=== PATIENT | female | born 1950 | race Caucasian/White ===

== ENCOUNTER 2016-09-25 21:14 | Emergency (ER) | payer OTHER ==
--- NOTE | ~2016-09-25 | CR126 ---
[facility] A Service of [facility] & [facility] RADIOLOGY TEXT RESULTS PATIENT: KAILA THOMSON LOCATION: [facility] : 54 UNIT #: [id number] AGE: [address]: Sebastian Michelle MD SEX: F ORDER DR: [id number] [facility] [address] [place], [place] [address] [id number] E MR#: [id number] Acc #: [id number] NAME: KAILA THOMSON : 1950 SEX: F STUDY DATE/TIME: 09/25/2016 21:16 UNIT: [facility] ROOM: STUDY DESCRIPTION: CR Foot Complete Min 3 View Lt Attending Physician: Sebastian Michelle M.D. Ordering Physician: Sebastian Michelle M.D. Primary Care Physician: Ofe Pantoja M.D. MEDICAL IMAGING REPORT This report is preliminary unless electronic signature is present EXAM Left foot series, 09/25/2016. HISTORY Pain. The patient describes 2 days of pain, status post fall anterior and lateral ankle/foot pain. FINDINGS AP, lateral and oblique radiographs of the right foot are presented. Diminished bony mineralization. Prior open reduction internal fixation right femur. Visualized orthopedic hardware is intact. No acute traumatic fracture or malalignment. Joint spaces are intact. No soft tissue defect or subcutaneous air. Soft tissue swelling suggested dorsal aspect of distal foot. Correlate with exam and mechanism of injury. Dictated by... Alex Paulino M.D. THIS IS AN ELECTRONICALLY VERIFIED REPORT Alex Paulino M.D. at 09/26/2016 10:44 PM Quang TD: 09/25/2016 23:26 JOB #: [id number] MEDICAL IMAGING REPORT Page 1 of 1 COPY
--- NOTE | ~2016-09-25 | CR21 ---
[facility] A Service [facility] RADIOLOGY TEXT RESULTS PATIENT: KAILA THOMSON LOCATION: [facility] : 54 UNIT #: [id number] AGE: [address]: Sebastian Michelle MD SEX: F ORDER DR: [id number] [place] [id number] [facility] [place], [place] [address] [id number] E MR#: [id number] Acc #: [id number] NAME: KAILA THOMSON. : 1950 SEX: F STUDY DATE/TIME: 09/25/2016 21:14 UNIT: [facility] ROOM: STUDY DESCRIPTION: CR Ankle Min 3 Views Rt Attending Physician: Sebastian Michelle M.D. Ordering Physician: Sebastian Michelle M.D. Primary Care Physician: Ofe Pantoja M.D. MEDICAL IMAGING REPORT This report is preliminary unless electronic signature is present EXAM Right ankle 09/25/2016 INDICATIONS 66-year-old female with anterior and lateral ankle and foot pain symptoms 2 days. TECHNIQUE 3 views right ankle. COMPARISON STUDIES No comparisons. FINDINGS The bones are osteoporotic. Postop changes related to the fracture repair involving the distal tibia with screw and jamil fixation equipment present. No acute fracture. Soft tissues within normal limits. Mild degenerative change of the right ankle. IMPRESSION 1. Osteoporosis and degenerative change but no acute fracture. Postop changes of prior fracture repair. Surgical hardware appears intact. Dictated by... Garrett Jackson M.D. THIS IS AN ELECTRONICALLY VERIFIED REPORT Garrett Jackson M.D. at 09/26/2016 10:35 AM MARY GRACEY/chrissie [facility] A Service [facility] RADIOLOGY TEXT RESULTS PATIENT: KAILA THOMSON LOCATION: [facility] : 54 UNIT #: [id number] AGE: [address]: Sebastian Michelle MD SEX: F ORDER DR: TD: 09/25/2016 23:11 JOB #: [id number] MEDICAL IMAGING REPORT Page 1 of 1 COPY
--- NOTE | ~2016-09-25 | CR126 ---
[facility] A Service of [facility] RADIOLOGY TEXT RESULTS PATIENT: KAILA THOMSON LOCATION: [facility] : 54 UNIT #: [id number] AGE: [address]: Sebastian Michelle MD SEX: F ORDER DR: [id number] [facility] [address] [place], [place] [address] [id number] E MR#: [id number] Acc #: [id number] NAME: KAILA THOMSON : 1950 SEX: F STUDY DATE/TIME: 09/25/2016 22:34 UNIT: [facility] ROOM: STUDY DESCRIPTION: CR Foot Complete Min 3 View Lt Attending Physician: Sebastian Michelle M.D. Ordering Physician: Sebastian Michelle M.D. Primary Care Physician: Ofe Pantoja M.D. MEDICAL IMAGING REPORT This report is preliminary unless electronic signature is present EXAM Left foot series 09/25/2016. HISTORY Pain. Anterior foot pain for 2 days status post fall. FINDINGS AP lateral and oblique radiographs of the left foot are presented. Normal bony mineralization. No traumatic fracture or malalignment. Joint spaces are intact. No soft tissue defect, subcutaneous air or radiodense foreign body. Small plantar calcaneal spur. Dictated by... Alex Paulino M.D. THIS IS AN ELECTRONICALLY VERIFIED REPORT Alex Paulino M.D. at 09/26/2016 10:44 PM OLGA/sid TD: 09/25/2016 23:53 JOB #: [id number] MEDICAL IMAGING REPORT Page 1 of 1 COPY
[~2016-09-25 21:14] MED LIST: ALBUTEROL17 G1 IH; ASPIR-TRIN325 MG PO; ASPIRIN PO; ATARAX PO; BACTROBAN22 GM TP; BUMEX; CLEOCIN HCL300 M1 PO; DIAZEPAM PO; DIAZEPAM10 MG PO; DIFLUCAN PO; DIFLUCAN100 MG PO; HYDROCODON-ACE1 EAC4 PO; HYZAAR 50-12.51 TAB; ISORDIL; LEVAQUIN PO; LITE COAT ASPI325 M1 PO; LORTAB 10/500 T1 TAB; LORTAB 101 TAB 10/5 DOB; METOPROLOL SUCC25 MG PO; METOPROLOL TAR25 MG PO; NEURONTIN PO; NEURONTIN800 MG PO; NORCO 10/325 TA1 TAB PO; PLAVIX PO; SEROQUEL300 MG PO; TOPROL XL PO; VISTARIL PO; ZITHROMAX PO; ZITHROMAX1 G/PKT PO
== END 2016-09-25 23:42 | disposition home or self-care (01) ==
LOC: CED 21:14
DX: S93.401A Sprain of unspecified ligament of right ankle, initial encounter (principal); S93.602A Unspecified sprain of left foot, initial encounter; S93.601A Unspecified sprain of right foot, initial encounter; F17.200 Nicotine dependence, unspecified, uncomplicated; J44.9 Chronic obstructive pulmonary disease, unspecified; I10 Essential (primary) hypertension; W01.0XXA Fall on same level from slipping, tripping and stumbling without subsequent striking against object, initial encounter
CPT/HCPCS: 73610; 73630; 99283

== ENCOUNTER 2016-10-07 16:56 | Emergency (ER) | payer OTHER ==
--- NOTE | ~2016-10-07 | EKG ---
PATIENT: KAILA THOMSON UNIT #: [id number] Ventricular Rate: 72 BPM Atrial Rate: 72 BPM P-R Interval: 166 ms QRS Duration: 80 ms Q-T Interval: 438 ms QTC Calculation(Bezet): 479 ms P [place]: 21 degrees Calculated R [place]: -16 degrees Calculated T [place]: 17 degrees Diagnosis Line: Normal sinus rhythm Diagnosis Line: Normal ECG Diagnosis Line: When compared with ECG of 14-AUG-2014 13:24, Diagnosis Line: No significant change was found Diagnosis Line: Confirmed by SILVESTRE CHOI MD ([id number]) on 10/10/2016 Diagnosis Line: 9:41:26 AM INTERPRETING MD: STEPH CARRASCO
--- NOTE | ~2016-10-07 | CR72 ---
[facility] A Service of [facility] & [facility] RADIOLOGY TEXT RESULTS PATIENT: KAILA THOMSON LOCATION: [facility] : 54 UNIT #: [id number] AGE: [address]: Isael Weir MD SEX: F ORDER DR: [id number] [facility] [address] [place], [place] [address] [id number] E MR#: [id number] Acc #: [id number] NAME: KAILA THOMSON : 1950 SEX: F STUDY DATE/TIME: 10/07/2016 18:05 UNIT: [facility] ROOM: STUDY DESCRIPTION: CR Chest Single View Portable Attending Physician: Isael Weir M.D. Ordering Physician: Isael Weir M.D. Primary Care Physician: Ofe Pantoja M.D. MEDICAL IMAGING REPORT This report is preliminary unless electronic signature is present EXAM Portable chest INDICATION Chest pain for the past 2 weeks. PROCEDURE Frontal view of the chest. COMPARISON 08/14/2014 FINDINGS Heart size within normal limits. No dense consolidation, pleural fluid, or pneumothorax. IMPRESSION No active process. Dictated by... Tim Pham M.D. THIS IS AN ELECTRONICALLY VERIFIED REPORT Tim Pham M.D. at 10/11/2016 7:05 AM TASHA/tianna TD: 10/08/2016 08:09 JOB #: [id number] MEDICAL IMAGING REPORT Page 1 of 1 COPY
[2016-10-07 16:47] LABS: POC - CKMB 1.8 ng/mL (0.0-7.9); POC - TROPONIN <0.05 ng/mL (<=0.05)
[2016-10-07 16:56] LABS: BASOPHIL% 0.3 % (0-2.5); EOSINOPHIL# 0.1 X10e3 (0-0.7); EOSINOPHIL% 0.9 % (0.0-7.0); HEMATOCRIT 44.7 % (35.0-45.0); HEMOGLOBIN 14.6 gm/dL (12.0-16.0); LYMPHOCYTE# 1.6 X10e3 (1.0-3.5); LYMPHOCYTE% 25.1 % (17.0-45.0); MEAN CELL VOLUME 85.2 FL (83-96); MEAN CORPUSCULAR HEMOGLOBIN 27.9 PG (28-34); MEAN CORPUSCULAR HGB CONC 32.7 g/dL (30-36); MEAN PLATELET VOLUME 8.3 FL (6.5-11.5); MONOCYTE# 0.4 X10e3 (0-1.0); MONOCYTE% 5.7 % (3.0-12.0); NEUTROPHIL# 4.3 X10e3 (1.5-7.1); PLATELET COUNT 202 X10e3 (140-420); RED BLOOD COUNT 5.25 X10e (3.90-5.30); RED CELL DISTRIBUTION WIDTH 15.7 % (11.0-15.5); WHITE BLOOD COUNT 6.3 X10e3 (4.0-10.5)
[2016-10-07 16:57] LABS: DIFF IND NO
[2016-10-07 17:11] LABS: PARTIAL THROMBOPLASTIN TIME 24.8 SECONDS (23.5-31.3); PROTHROMBIN TIME (PATIENT) 10.5 SECONDS (9.6-11.5)
[2016-10-07 17:22] LABS: ALBUMIN SERUM 3.8 g/dL (3.5-5.0); BILIRUBIN, DIRECT 0.1 mg/dL (0.0-0.2); BILIRUBIN,INDIRECT 0.3 mg/dL (0.0-0.9); BILIRUBIN,TOTAL 0.4 mg/dL (0.2-2.0); BUN/CREATININE RATIO 16.25; CALCIUM SERUM 9.2 mg/dL (8.4-10.2); CREATININE SERUM 0.8 mg/dL (0.6-1.4); POTASSIUM 3.5 mmol/L (3.5-5.1); PROTEIN TOTAL SERUM 7.8 g/dL (6.0-8.3)
[2016-10-07 18:25] LABS: POC - CKMB <1.0 ng/mL (0.0-7.9); POC - TROPONIN <0.05 ng/mL (<=0.05)
[2016-10-07 18:30] LABS: URINE SOURCE CLEAN CATCH
[2016-10-07 18:41] LABS: URINE APPEARANCE CLOUDY; URINE BILIRUBIN NEG (NEG); URINE BLOOD 1+ (NEG); URINE COLOR DK YELLOW; URINE GLUCOSE >1000 MG/DL (NEG); URINE KETONE 1+ (NEG); URINE LEUKOCYTE ESTERASE NEG (NEG); URINE NITRATE POS (NEG); URINE PH 5.5 (5-8); URINE PROTEIN 3+ (NEG); URINE SPECIFIC GRAVITY 1.034 (1.003-1.035)
[2016-10-07 18:43] LABS: CULTURE INDICATED? YES; U HYALINE CASTS AUWI 0-2 /[LPF]; URBCS1 AUWI 0-2 /[HPF] (0-2); URINE BACTERIA AUWI 4+ (NEGATIVE); URINE SQUAMOUS EPITHELIAL CELL NONE SEEN /[HPF]
[2016-10-07] MEDS ORDERED: HYDROCODON-ACE1 EAC5 PO (18:46)
[2016-10-07] MEDS ORDERED: VALIUM10 MG PO (18:46)
[2016-10-07 18:47] LABS: AMPHETAMINE NEG (NEG); BARBITURATES POS (NEG); BENZODIAZEPINES POS (NEG); COCAINE NEG (NEG); MARIJUANA NEG (NEG); OPIATES POS (NEG); TRICYCLIC ANTIDEPRESSANTS NEG (NEG); U METHADONE NEG (NEG)
[2016-10-07] MEDS ORDERED: SEROQUEL300 M1 PO (18:47)
[2016-10-07] MEDS ORDERED: NEURONTIN800 MG PO (18:47)
[2016-10-07] MEDS ORDERED: GLIPIZIDE10 MG PO (18:47)
== END 2016-10-07 19:32 | disposition home or self-care (01) ==
LOC: CED 16:56
PROVIDERS: Emergency Medicine
DX: N39.0 Urinary tract infection, site not specified (principal); R07.9 Chest pain, unspecified; I10 Essential (primary) hypertension; I25.2 Old myocardial infarction; Z88.0 Allergy status to penicillin
CPT/HCPCS: 36415; 51701; 71010; 80048; 80076; 80307; 81003; 82553; 83690; 84484; 85025; 85610; 85730; 87086; 87088; 87186; 93005; 96361; 96374; 99284; G0480; J2405